=== PATIENT | male | born 1990 | race Caucasian/White ===

== ENCOUNTER 2017-08-12 18:46 | Emergency (ER) | payer SELFPAY ==
[2017-08-12 18:58] VITALS: BP 135/71; PULSE 115; RESP 16; TEMP 99.7; O2SAT 97
[2017-08-12] MEDS ORDERED: METF500T PO ×2 (19:59→21:39)
--- NOTE | 2017-08-12 20:10 | PD ---
HPI Chief Complaint: Injury Time Seen by Provider: 20:02 Travel History International Travel<30 days: No Contact w/Intl Traveler<30days: No Traveled to known affect area: No History of Present Illness HPI 27-year-old male complains of right elbow pain and swelling. Patient states that the symptoms started. Patient states the pain is sharp pain localized to the posterior aspect of the right elbow. Patient denies any pain radiation. Patient states the pain is worse with movement of the right elbow joint. Patient denies any fever chills. Patient denies any injury to the right elbow. Patient denies any IV drug abuse. Patient has history of diabetes type 2, has not taken his metformin recently. On a scale of 1-10 the pain is a 7. PFSH Past Medical History Diabetes: Yes (TYPE 2) Patient Takes Glucophage: No Diminished Hearing: No Immunizations Current: Yes Past Surgical History Surgical History: No Previous Surgery Social History Alcohol Use: Yes Tobacco Use: Yes (<1PPD) Substance Use: No Allergies-Medications (Allergen,Severity, Reaction): Coded Allergies: No Known Allergies (Unverified , 08/12/17) Reported Meds & Prescriptions Reported Meds & Active Scripts Active Reported Metformin (Metformin HCl) 500 Mg Tab 500 Mg PO BIDPC Review of Systems General / Constitutional: No: Fever Eyes: No: Visual changes HENT: No: Headaches Cardiovascular: No: Chest Pain or Discomfort Respiratory: No: Shortness of Breath Gastrointestinal: No: Abdominal Pain Genitourinary: No: Dysuria Musculoskeletal: Positive: Pain Skin: No Rash Neurologic: No: Weakness Psychiatric: No: Depression Endocrine: No: Polydipsia Hematologic/Lymphatic: No: Easy Bruising Physical Exam Narrative GENERAL: Well-nourished, well-developed patient. SKIN: Focused skin assessment warm/dry. HEAD: Normocephalic. EYES: No scleral icterus. No injection or drainage. NECK: Supple, trachea midline. No JVD or lymphadenopathy. CARDIOVASCULAR: Regular rate and rhythm without murmurs, gallops, or rubs. RESPIRATORY: Breath sounds equal bilaterally. No accessory muscle use. GASTROINTESTINAL: Abdomen soft, non-tender, nondistended. MUSCULOSKELETAL: No cyanosis, or edema. BACK: Nontender without obvious deformity. No CVA tenderness. Patient has soft tissue swelling tenderness posterior aspect the right elbow joint. No induration noted. Limited range of motion at the right elbow secondary to pain. Sensory motor function distally intact. No redness noted. Increase in heat noted. Data Data Last Documented VS Vital Signs Date Time Temp Pulse Resp B/P (MAP) Pulse Ox O2 Delivery O2 Flow Rate FiO2 08/12/17 18:58 99.7 115 16 135/71 (92) 97 Orders Orders Complete Blood Count With Diff (08/12/17 20:05) Basic Metabolic Panel (Bmp) (08/12/17 20:05) Iv Access Insert/Monitor (08/12/17 20:05) Elbow, Complete (4 Vws) (08/12/17 20:05) Labs Laboratory Tests Test 08/12/17 20:15 White Blood Count 12.6 TH/MM3 Red Blood Count 4.06 MIL/MM3 Hemoglobin 13.1 GM/DL Hematocrit 37.5 % Mean Corpuscular Volume 92.4 FL Mean Corpuscular Hemoglobin 32.3 PG Mean Corpuscular Hemoglobin Concent 35.0 % Red Cell Distribution Width 14.6 % Platelet Count 160 TH/MM3 Mean Platelet Volume 8.0 FL Neutrophils (%) (Auto) 63.8 % Lymphocytes (%) (Auto) 25.9 % Monocytes (%) (Auto) 8.3 % Eosinophils (%) (Auto) 1.7 % Basophils (%) (Auto) 0.3 % Neutrophils # (Auto) 8.0 TH/MM3 Lymphocytes # (Auto) 3.3 TH/MM3 Monocytes # (Auto) 1.0 TH/MM3 Eosinophils # (Auto) 0.2 TH/MM3 Basophils # (Auto) 0.0 TH/MM3 CBC Comment DIFF FINAL Differential Comment Blood Urea Nitrogen 14 MG/DL Creatinine 1.10 MG/DL Random Glucose 214 MG/DL Calcium Level 9.0 MG/DL Sodium Level 140 MEQ/L Potassium Level 3.8 MEQ/L Chloride Level 106 MEQ/L Carbon Dioxide Level 21.4 MEQ/L Anion Gap 13 MEQ/L Estimat Glomerular Filtration Rate 80 ML/MIN MDM Medical Decision Making Medical Screen Exam Complete: Yes Emergency Medical Condition: Yes Interpretation(s) Last Impressions Elbow X-Ray 08/12/172004 Signed Impressions: CONCLUSION: No acute bony abnormality. Soft tissue swelling over the extensor surface of th e elbow. 21:33 PM. CBC WBC 12.6. Normal differential. Glucose 214. Differential Diagnosis Differential diagnosis including sprain, fracture, dislocation, cellulitis, septic joint. Narrative Course 27-year-old male with pain and swelling posterior aspect right elbow. Nontraumatic. Patient has history of type 2 diabetes and noncompliant with medication. Clindamycin 600 mg IV given. Bactrim DS 1 tablet p.o. given. Diagnosis Primary Impression: Cellulitis of right elbow Additional Impression: Hyperglycemia Patient Instructions: General Instructions Additional Instructions: Take medications as directed. Accu-Chek blood sugar daily. Follow-up local physician. Return if increasing redness or swelling. Med/Other Pt SpecificInfo: Prescription(s) given Scripts Sulfamethoxazole-Trimethoprim (Bactrim DS) 800-160 Mg Tab 1 TAB PO BID for Infection, #20 TAB 0 Refills Prov: Haroon Ibrahim MD 08/12/17 Clindamycin (Clindamycin) 150 Mg Cap 300 MG PO QID for Infection, #80 CAP 0 Refills Prov: Haroon Ibrahim MD 08/12/17 Metformin (Metformin) 500 Mg Tab 500 MG PO BIDPC for Blood Sugar Management, #60 TAB 0 Refills Prov: Haroon Ibrahim MD 08/12/17 Disposition: 01 DISCHARGE HOME Condition: Stable Haroon Ibrahim MD Aug 12, 2017 20:10
--- NOTE | 2017-08-12 20:51 | RADRPT ---
EXAM DATE: 08/12/2017 8:42 PM EDT AGE/SEX: 27 years / Male INDICATIONS: Pain in right elbow. Swelling. No known injury. CLINICAL DATA: This is the patient's initial encounter. Patient reports that signs and symptoms have been present for 1 week and indicates a pain score of 7/10. MEDICAL/SURGICAL HISTORY: None. None. COMPARISON: No prior exams available for comparison. FINDINGS: Bony structures are intact and in normal alignment. Joints are intact without dislocation or signifi cant arthropathy. Osseous density is normal. Soft tissues are unremarkable. No radiopaque foreign bodies seen. CONCLUSION: No acute bony abnormality. Soft tissue swelling over the extensor surface of the elbow. Electronically signed by: Rafy Barraza MD 08/12/2017 8:50 PM EDT
[2017-08-12 20:54] LABS: BASOPHIL % 0.3 % (0.0-2.0); EOSINOPHIL # 0.2 TH/MM3 (0-0.4); EOSINOPHIL % 1.7 % (0.0-4.0); HEMATOCRIT 37.5 % (39.0-51.0); HEMOGLOBIN 13.1 GM/DL (13.0-17.0); LYMPH % 25.9 % (9.0-44.0); LYMPHOCYTE # 3.3 TH/MM3 (1.0-4.8); MEAN CELL VOLUME 92.4 FL (80.0-100.0); MEAN CORPUSCULAR HEMOGLOBIN 32.3 PG (27.0-34.0); MONO % 8.3 % (0.0-8.0); NEUT % 63.8 % (16.0-70.0); PLATELET COUNT 160 TH/MM3 (150-450); RED BLOOD COUNT 4.06 MIL/MM3 (4.50-5.90); RED CELL DISTRIBUTION WIDTH 14.6 % (11.6-17.2); WHITE BLOOD COUNT 12.6 TH/MM3 (4.0-11.0)
[2017-08-12 21:25] LABS: BICARBONATE 21.4 MEQ/L (21.0-32.0); CREATININE 1.1 MG/DL (0.60-1.30)
[2017-08-12] MEDS ORDERED: CLIN150C14 PO (21:39)
[2017-08-12] MEDS ORDERED: BACT800T5 PO (21:39)
[2017-08-12] MEDS ORDERED: SULFAMETHOXAZOLE-TRIMETHOPRIM DS 800-160 MG TAB PO ONE (21:45)
[2017-08-12] MEDS ORDERED: CLINDAMYCIN 600 MG/NS PREMIX 50 ML IV ONE (21:45)
== END 2017-08-12 23:08 | disposition home or self-care (01) ==
LOC: NEPD 18:46
DX: L03.113 Cellulitis of right upper limb (principal); E11.65 Type 2 diabetes mellitus with hyperglycemia; F17.200 Nicotine dependence, unspecified, uncomplicated; Z91.14 Patient's other noncompliance with medication regimen
CPT/HCPCS: 73080; 80048; 85025; 96374